=== PATIENT | male | born 1995 | race Caucasian/White ===

== ENCOUNTER 2020-08-21 12:43 | Outpatient (REF) | payer MEDICAID, SELFPAY | END 2020-08-21 12:44 | disposition home or self-care (01) | LOC: HO.LAB 12:43 | PROVIDERS: Visit Provider Internal Medicine | DX: Z20.828 Contact with and (suspected) exposure to other viral communicable diseases (principal) | CPT/HCPCS: C9803; U0003 ==

== ENCOUNTER 2021-03-09 11:48 | Emergency (ER) | payer OTHER, SELFPAY ==
--- NOTE | ~2021-03-09 | XR_ITS ---
EXAMINATION: XR CHEST CLINICAL INFORMATION: SOB. COMPARISON: Chest 09/14/2016 TECHNIQUE: 2 views of the chest were obtained. FINDINGS: The lungs are well-expanded and clear of acute process. The heart size and pulmonary vascularity is normal. No gross bony abnormality seen. XR/XR chest 2V IMPRESSION: Unremarkable chest exam.
[2021-03-09 13:37] VITALS: BP 149/89; PULSE 73; RESP 18; TEMP 36.7; O2SAT 96; BMI 29.7
--- NOTE | 2021-03-09 14:22 | ED_ITS ---
HPI - Asthma General Chief Complaint: Asthma Stated Complaint: asthma Time Seen by Provider: 03/09/21 14:13 Source: patient Mode of arrival: ambulatory Limitations: no limitations History of Present Illness HPI Narrative: 25-year-old male with history of asthma presents to the ED with and wheeze x3 days. Patient is concerned that he needs steroids because his symptoms are getting worse. Has been using nebulizer at home twice a day without significant improvement. Is also worried he could have pneumonia. His girlfriend is sick with similar symptoms. No concern for COVID-19. No reports of fevers chills chest pain or abdominal pain. Continues to urinate and stool without significant change in baseline. Related Data Previous Rx's Medication Instructions Recorded prednisone 60 mg PO DAILY 4 Days #12 tab 03/09/21 Allergies Allergy/AdvReac Type Severity Reaction Status Date / Time No Known Allergies Allergy Verified 03/09/21 13:36 Review of Systems Review of Systems: Constitutional : No Weight loss, No Fever, No Chills, No Night Sweats, No Fatigue, No Malaise ENT/Mouth : No Hearing loss, No Ear Pain, No Nasal Congestion, No Sinus Pain, No Hoarseness, No sore throat, No Rhinorrhea, No Swallowing Difficulty Eyes: No Eye Pain, No Swelling, No Redness, No Foreign Body, No Discharge, No Vision Changes Cardiovascular : No Chest Pain, No SOB, No Dyspnea on Exertion, No Orthopnea, No Edema, No Palpitations Respiratory : + Cough, No Sputum, + Wheezing, No Smoke Exposure, No Dyspnea Gastrointestinal : No Nausea, No Vomiting, No Diarrhea, No Constipation, No abdominal Pain, No Hematochezia, No Melena Genitourinary : no irregular bleeding, No Dysuria, No Urinary Frequency, No Hematuria, No Urinary Incontinence, No Urgency, No Flank Pain, No Urinary Flow Changes, No Hesitancy Musculoskeletal : No joint pain, No Myalgias, No Joint Swelling Skin : No Skin Lesions, No rash Neuro : No Weakness, No Numbness, No Paresthesias, No Loss of Consciousness, No Dizziness, No Headache Psych : No Anxiety/Panic, No Depression, No SI/HI/AH/VH, No Social Issues, Heme/Lymph: No Bruising, No Bleeding,No Lymphadenopathy Endocrine : No Polyuria, No Polydipsia, No Temperature Intolerance [facility] Past Medical History Attestation statement: The following information was validated with the patient. Source: old records reviewed and nursing notes reviewed Medical History (Updated 03/09/21 @ 15:13 by NAKIA Lovelace) ADHD Asthma Social History Social History Advance Directives: Yes Advance Directives Information Provided: Yes Advance Directives on File: No Physical Exam Vital Signs: Vital Signs: Last Vital Signs Temp 98.0 F 03/09/21 13:37 Pulse 73 03/09/21 13:37 Resp 18 03/09/21 13:37 BP 149/89 H 03/09/21 13:37 Pulse Ox 96 03/09/21 13:37 Body Mass Index 29.7 vital signs have been reviewed as normal and appeared to be correct. Blood pressure normal. Heart rate normal. Respiration rate normal. Temperature normal. Oxygen saturation normal. Appearance: Alert. Oriented X3. No acute distress. Head: Normal external exam. Normocephalic. Atraumatic. No Vasquez signs noted. No raccoon eyes noted Eyes: Conjunctiva and sclera normal. ENT: EAC normal. Moist mucous membranes. No drooling noted. No muffled voice noted. Neck: Normal inspection. Neck supple. FROM. No meningeal signs. CVS: Pulses normal throughout. Respiratory: No respiratory distress. Painless inspiration. No accessory muscle usage noted. Patient with diffuse wheeze bilaterally. Abdomen: No visible injury noted. Back: Full range of motion noted. Skin: Skin warm and dry. Normal skin color. Normal skin turgor. Extremities: No lower extremity edema. Extremities exhibit normal range of motion. Neuro: Oriented X 3. No motor deficit. No sensory deficit. Course Reevaluation(s) Reevaluation #1: Patient's chest x-ray negative COVID negative will discharge home with continued steroids at home and close outpatient primary care follow-up . MDM - Asthma MDM Narrative Medical decision making narrative: Patient's vital signs are stable and he is afebrile. Patient presenting to the emergency department with asthma exacerbation lungs with moderate wheeze bilaterally no hypoxia no acute respiratory distress will obtain chest x-ray to ensure the absence of pulmonary consolidation or edema. Will swab for COVID-19. Will give 6 puffs of albuterol and oral prednisone and continue to monitor patient hemodynamically stable and likely will be safe for discharge. Lab Data Labs: Lab Results 03/09/21 Range/Units 14:34 COVID-19 ([facility]) Negative (Negative) COVID-19 Clin Com See Note Discharge Plan Discharge Clinical Impression: Asthma with acute exacerbation Qualifiers: Asthma severity: mild Asthma persistence: intermittent Qualified Code(s): J45.21 - Mild intermittent asthma with (acute) exacerbation Patient Disposition: Home, Self-Care Instructions: Asthma (ED) Additional Instructions: Your x-ray was negative for infection, or COVID test was negative. Were likely suffering from an asthma exacerbation that should improve over time with supportive care. Continue steroids for 4 additional days use albuterol nebulizer/inhaler as needed. Prescriptions: New prednisone 20 mg tablet 60 mg PO DAILY 4 Days Qty: 12 RF: 0 Referrals: Physician,Unknown [Primary Care Provider] - 2 days (your pcp) Interventions: ED Discharge Assessment Last Done: 03/09/21 15:29 Discharge Date/Time: 03/09/21 15:29 Print Language: [place]
[2021-03-09] MEDS: predniSONE 20 MG TABLET 60 MG PO (14:26)
[2021-03-09] MEDS: Albuterol Sulfate 90 MCG 8 GM INHALER 6 PUFF INHALE (14:31)
[2021-03-09 15:04] LABS: COVID-19 Test Negative (Negative)
== END 2021-03-09 15:29 | disposition home or self-care (01) ==
PROVIDERS: Physician Assistant; Emergency Provider Emergency Medicine
DX: J45.21 Mild intermittent asthma with (acute) exacerbation (principal); Z20.822 Contact with and (suspected) exposure to COVID-19
CPT/HCPCS: 36415; 71046; 87635; 94640; 99283; 99284

== ENCOUNTER 2021-09-11 02:23 | Emergency (ER) | payer MEDICAID, SELFPAY ==
--- NOTE | ~2021-09-11 | XR_ITS ---
EXAMINATION: XR CHEST CLINICAL INFORMATION: Cough COMPARISON: 03/09/2021 TECHNIQUE: Frontal view of the chest was obtained. FINDINGS: The lungs are well expanded. There is no focal consolidation, edema, or effusion. No pneumothorax. The cardiomediastinal silhouette is within normal limits. No acute osseous abnormality. XR/XR chest 1V IMPRESSION: Clear lungs.
[2021-09-11 02:25] VITALS: BP 117/72; PULSE 99; RESP 20; TEMP 36.1; O2SAT 96; BMI 28.8
[2021-09-11 02:54] LABS: COVID-19 Test Negative (Negative); IDNOW Serial# 9DD0AD1C
--- NOTE | 2021-09-11 05:20 | ED.URI ---
HPI - URI/Sore Throat General Chief Complaint: Upper Respiratory Symptoms Stated Complaint: dry cough Time Seen by Provider: 09/11/21 05:20 Source: patient Mode of arrival: ambulatory History of Present Illness HPI Narrative: 25-year-old male with presentation cough with chest congestion and pain is worse with deep breathing but denies any wheezing and endorses a has underlying asthma. Patient states he has medication and reports that he has been vaccinated for COVID-19 and does not currently smoke cigarettes. Related Data Previous Rx's Medication Instructions Recorded prednisone 20 mg tablet 60 mg PO DAILY 4 Days #12 tab 03/09/21 Allergies Allergy/AdvReac Type Severity Reaction Status Date / Time No Known Allergies Allergy Verified 03/09/21 13:36 Review of Systems Review of Systems: Pertinent positives and negatives as stated in HPI 10 point review of systems is otherwise negative. PMFSH Past Medical History Source: nursing notes reviewed Medical History ADHD Asthma Social History Social History Advance Directives: No Advance Directives Information Provided: Yes Physical Exam Vital Signs: Vital Signs: Last Vital Signs Temp 97 F 09/11/21 02:25 Pulse 99 09/11/21 02:25 Resp 20 09/11/21 02:25 BP 117/72 09/11/21 02:25 Pulse Ox 96 09/11/21 02:25 BMI result Body Mass Index 28.8 VITAL SIGNS: Reviewed. GENERAL: Well developed, well nourished, in no acute distress. HEAD: Normocephalic/atraumatic EYES: PERRLA, EOMI EARS: Ext canals without abnormality, TMs non-bulging and non-erythematous NOSE: Nares patent bilateral OROPHARYNX: no oral lesions noted, posterior pharynx clear and non-erythematous without noted tonsillar enlargement/erythema/exudates NECK: Supple, no adenopathy LUNGS: Normal breath sounds , no wheeze/rhonchi/ rales, no tachypnea, no increased work of breathing. SpO2<96> CARDIOVASCULAR: Regular rate and rhythm without noted murmurs ABDOMEN: Soft, non-tender, non-distended with bowel sounds. NEUROLOGIC: Alert and oriented x 4. Course Course Course Narrative: 25-year-old male with history and clinical presentation consistent with viral URI and on review of all investigations there are no acute findings. All results were discussed with the patient at bedside, he was provided with a cough suppressant and otherwise discharged home in stable condition with instructions to use a cool mist humidifier at the bedside. MDM - URI/Sore Throat Lab Data Labs: Lab Results 09/11/21 Range/Units 02:31 COVID-19 ([facility]) Negative (Negative) COVID-19 Clin Com See Note Discharge Plan Discharge Clinical Impression: Upper respiratory infection, Lab test negative for COVID-19 virus Patient Disposition: Home, Self-Care Instructions: Upper Respiratory Infection (ED) Additional Instructions: 1. Recommend bedside cool mist humidifier as possible at the bedside while sleeping. 2. Recommend [id number] cough suppressant, like NyQuil, for cough relief. 3. Follow-up with your primary care provider in the next 2-3 days for re-evaluation. Return to the ER for worsening symptoms. Prescriptions: No Action prednisone 20 mg tablet 60 mg PO DAILY 4 Days Qty: 12 RF: 0 Referrals: [facility] [Primary Care Provider] - 2 days
[2021-09-11] MEDS: Benzonatate 100 MG CAPSULE 200 MG PO (06:30)
== END 2021-09-11 06:32 | disposition home or self-care (01) ==
PROVIDERS: Emergency Provider Student in an Organized Health Care Education/Training Program
DX: J06.9 Acute upper respiratory infection, unspecified (principal); Z20.822 Contact with and (suspected) exposure to COVID-19; J45.909 Unspecified asthma, uncomplicated
CPT/HCPCS: 36415; 71045; 87635; 99283

== ENCOUNTER 2022-12-17 21:14 | Emergency (ER) | payer MEDICAID, SELFPAY ==
--- NOTE | ~2022-12-17 | XR_ITS ---
EXAMINATION: XR WRIST, LEFT XR HAND, LEFT CLINICAL INFORMATION: Left hand and wrist pain status post fall. COMPARISON: None available. TECHNIQUE: PA, lateral, and oblique views of the left wrist and PA, lateral, and oblique views of the left hand. An indicator arrow points to the dorsum of the wrist. FINDINGS: LEFT WRIST: The bones and soft tissues are normal. No fracture. Alignment is anatomic. Joint spaces are maintained. No erosions or soft tissue calcifications. LEFT HAND: The bones and soft tissues are normal. No fracture. Alignment is anatomic. Joint spaces are maintained. No erosions or soft tissue calcifications. XR/XR hand wrist LT IMPRESSION: Unremarkable left hand and wrist.
--- NOTE | ~2022-12-17 | XR_ITS ---
EXAMINATION: XR KNEE, LEFT CLINICAL INFORMATION: Left knee pain COMPARISON: None available. TECHNIQUE: Four views of the left knee. FINDINGS: Bones and soft tissues are normal. No fracture or joint effusion. Alignment is anatomic. Joint spaces are well maintained. No abnormal soft tissue calcification. XR/XR knee LT 4V IMPRESSION: Unremarkable left knee.
[2022-12-17 21:38] VITALS: BP 135/70; PULSE 88; RESP 20; TEMP 36.8; O2SAT 97; BMI 29.7
--- NOTE | 2022-12-18 00:45 | ED.LOWEXIN ---
HPI - Extremity Injury (Lower) General Chief Complaint: Extremity Injury, Lower Stated Complaint: knee pain Time Seen by Provider: 12/18/22 00:16 Source: patient Mode of arrival: ambulatory Limitations: no limitations History of Present Illness HPI Narrative: Patient apparently fell on stairs while carrying his bicycle down steps missed 6- 7 steps landed on his left knee no significant head injury or neck pain complaining of pain in the left knee and left wrist able to ambulate no loss of consciousness Related Data Previous Rx's Medication Instructions Recorded prednisone 20 mg tablet 60 mg PO DAILY 4 days #12 tabs 03/09/21 ibuprofen 600 mg tablet 600 mg PO Q6H PRN fever or pain 12/18/22 #30 tabs Allergies Allergy/AdvReac Type Severity Reaction Status Date / Time No Known Allergies Allergy Verified 03/09/21 13:36 Review of Systems Review of Systems: Yes all other systems are reviewed and are negative [facility] Past Medical History Medical History ADHD Asthma Social History Social History Advance Directives: No Advance Directives Information Provided: Yes Physical Exam Vital Signs: Vital Signs: Last Vital Signs Temp 98.2 F 12/17/22 21:38 Pulse 88 12/17/22 21:38 Resp 20 12/17/22 21:38 BP 135/70 12/17/22 21:38 Pulse Ox 97 12/17/22 21:38 O2 Del Method 12/17/22 21:38 BMI result Body Mass Index 29.7 Appearance: Alert. Oriented X3. No acute distress. Eyes: PERRLA, No Nystagmus ENT: Pharynx normal. Oral Mucosa moist atraumatic normocephalic Neck: Normal inspection. Neck supple. CVS: Normal heart rate and rhythm. Pulses normal. Respiratory: No respiratory distress. Equal air entry bilateral, no wheezing/rales/rhonchi Abdomen: Soft and nontender. Bowel sounds are present, no mass palpable, no CVA tenderness Skin: Skin warm and dry. Normal skin color. Normal skin turgor. Extremities: No lower extremity edema. No calf tenderness tenderness of the left patella with slight swelling and bruising no knee effusion, left wrist diffuse tenderness no bony deformity or tenderness Neuro: Oriented X 3. No motor deficit. No sensory deficit.No cerebellar signs , cranial nerves II-XII intact Medications Administered Discontinued Medications Generic Name Dose Route Start Last Admin Trade Name Danieleq PRN Reason Stop Dose Admin Ibuprofen 600 mg 12/18/22 00:42 12/18/22 00:51 Ibuprofen 600 Mg Tablet PO 12/18/22 00:43 600 mg ONCE ONE Administration Oxycodone HCl 10 mg 12/18/22 00:42 12/18/22 00:51 Oxycodone Hcl Immed Release 5 Mg Tablet PO 12/18/22 00:43 10 mg ONCE ONE Administration Medical Decision Making Medical Decision Making [facility] Narrative: Patient status post mechanical fall x-rays left knee and left wrist negative discharge patient home on Bennett wrap and crutches for ambulate Discharge Plan Discharge Clinical Impression: Contusion of knee, left Patient Disposition: Home, Self-Care Instructions: Knee Pain (ED) Additional Instructions: Wear Bennett wrap for support Crutches for ambulation Ibuprofen for pain Prescriptions: New ibuprofen 600 mg tablet 600 mg PO Q6H PRN (Reason: fever or pain) Qty: 30 0RF No Action prednisone 20 mg tablet 60 mg PO DAILY 4 Days Qty: 12 0RF Stand Alone Forms: Work/School Release Interventions: ED Discharge Assessment Last Done: 12/18/22 01:12 Discharge Date/Time: 12/18/22 01:13
[2022-12-18] MEDS: oxyCODONE HCl Immed Release 5 MG TABLET 10 MG PO (00:51)
[2022-12-18] MEDS: Ibuprofen 600 MG TABLET PO (00:51)
== END 2022-12-18 01:13 | disposition home or self-care (01) ==
PROVIDERS: Emergency Provider Internal Medicine
DX: S80.02XA Contusion of left knee, initial encounter (principal); M25.532 Pain in left wrist; M79.642 Pain in left hand; W10.9XXA Fall (on) (from) unspecified stairs and steps, initial encounter; Y93.9 Activity, unspecified; Y92.9 Unspecified place or not applicable; Y99.9 Unspecified external cause status
CPT/HCPCS: 73110; 73130; 73564; 99283